=== PATIENT | male | born 1965 | race Hispanic/Latino ===

== ENCOUNTER → 2025-04-11 | Outpatient (CLI) | payer BC ==
[~2025-04-11] MED LIST: REGADENOSON 0.4 MG/5 ML PF SYG IVP ONE
--- NOTE | 2025-04-11 19:51 | HMCSR ---
APPROVED REPORT Height: 5 ft 8in Weight: 191 lbs TEST INDICATIONS CAD The imaging protocol used to acquire images was Rest Tc-99m/stress Tc-99m 1 day Consent: The procedure was explained and understood by the patient. Informerd consent was witnessed Lul Andres RN First, low dose rest was performed then high dose stress. RESTING DATA: The resting ekg shows: NSR Rest SPECT myocardial perfusion imaging was performed in supine position minutes following the intra venous injection of 11.5 mCi of Tc-99 Sestamibi. Time of rest injection: 10:15: Date: 04/11/2025 PHARMACOLOGIC STRESS: Pharmacologic stress test was performed by injecting regadenoson 0.4 mg IV push followed by the intra venous injection of 30 mCi of Tc-99 Sestamibi. Time of stress injection: 11:30: Date: 04/11/2025 Heart Rate at time of stress injection: 61 bpm. Gated Stress SPECT was performed 60 minutes after stress injection. The images were gated to evaluate regional wall motion and calculate left ventricular ejection fracti on. STRESS DETAILS Reason for Termination: Infusion complete Stress Symptoms: Anxiety Max HR Achieved: 94 bpm % of APMHR Achieved: 69 Max Blood Pressure: 153/65 mmHg Stress ECG: NSR Study quality was good. Lung uptake was Normal. Artifact: No artifact IMPRESSION Normal pharmacologic nuclear stress test. Conclusion Normal perfusion. TID 0.92. LVEF 58%.
== END | disposition home or self-care (01) ==
LOC: RAH 09:35
PROVIDERS: ATTEND Internal Medicine Cardiovascular Disease
DX: I25.10 Atherosclerotic heart disease of native coronary artery without angina pectoris (principal); F41.9 Anxiety disorder, unspecified
CPT/HCPCS: 78452; 93017; J2785; A9500 ×2